=== PATIENT | female | born 1975 | race Two or more races ===

== ENCOUNTER 2020-08-12 19:04 | Emergency (ER) | payer SELFPAY ==
[2020-08-12 19:29] VITALS: BP 135/76
[2020-08-12] MEDS ORDERED: LIDOCAINE 2% VISCOUS SOLN 15 ML UDCUP PO ONE (19:41)
[2020-08-12] MEDS ORDERED: PENICILLIN V POTASSIUM 500 MG TABLET PO ONE (19:41)
--- NOTE | 2020-08-12 19:50 | ER Document Report ---
ED Oral Problem - General Chief Complaint: Toothache Stated Complaint: POSSIBLE TOOTH ABCESS Time Seen by Provider: 08/12/20 19:35 Mode of Arrival: Ambulatory Information source: Patient Notes: 45-year-old female presented to ED for complaint of dental pain x2 weeks to the tooth #18. States she knows it was 2 weeks ago because she was eating sardines and at night when she brushed her teeth it started hurting. She does have a feeling in this tooth and it is decayed with mild swelling and redness around the tooth. Patient is alert oriented respirations regular nonlabored speaking in full sentences. Constitutional: Negative for fever. HENT: Negative for sore throat. To painful tooth number 18 x 2 weeks with mild redness and swelling and pain with chewing or cold water Eyes: Negative for visual changes. Cardiovascular: Negative for chest pain. Respiratory: Negative for shortness of breath. Gastrointestinal: Negative for abdominal pain, vomiting or diarrhea. Genitourinary: Negative for dysuria. Musculoskeletal: Negative for back pain. Skin: Negative for rash. Neurological: Negative for headaches, weakness or numbness. 10 point ROS negative except as marked above and in HPI. PHYSICAL EXAMINATION: GENERAL: Well-appearing, well-nourished and in no acute distress. HEAD: Atraumatic, normocephalic. EYES: Pupils equal round extraocular movements intact, conjunctiva are normal. ENT: Nares patent, tooth #18 decayed with inflammation redness and tenderness around the tooth minimal swelling to the face NECK: Normal range of motion LUNGS: No respiratory distress Musculoskeletal: Normal range of motion NEUROLOGICAL: Normal speech, normal gait. PSYCH: Normal mood, normal affect. SKIN: Warm, Dry, normal turgor, no rashes or lesions noted. - HPI Patient complains to provider of: Jaw pain, Swelling of face, Swelling of jaw, Toothache Onset: Other - 2 weeks Onset: Gradual Quality of pain: Sharp, Throbbing Severity: Moderate Pain Level: 4 Swollen jaw/face: Mild Associated symptoms: Toothache Worsened by: Cold Relieved by: Nothing Similar symptoms previously: Yes Recently seen / treated by doctor/dentist: No Past Medical History - General Information source: Patient - Social History Smoking Status: Never Smoker Frequency of alcohol use: None Drug Abuse: None Lives with: Family Family History: Reviewed & Not Pertinent Patient has suicidal ideation: No Patient has homicidal ideation: No - Past Medical History Cardiac Medical History: Reports: Hx Hypertension - Due to toxemia when she was 15 Pulmonary Medical History: Reports: None EENT Medical History: Reports: None Neurological Medical History: Reports: None Endocrine Medical History: Reports: None Renal/ Medical History: Reports: None Malignancy Medical History: Reports: None GI Medical History: Reports: None Musculoskeletal Medical History: Reports Hx Musculoskeletal Trauma Skin Medical History: Reports None Psychiatric Medical History: Reports: None Traumatic Medical History: Reports: None Infectious Medical History: Reports: None Past Surgical History: Reports: Hx Appendectomy - Immunizations Immunizations up to date: Yes Hx Diphtheria, Pertussis, Tetanus Vaccination: Yes Physical Exam - Vital signs Vitals: Temp Pulse Resp BP Pulse Ox 98.7 F 79 14 135/76 H 100 08/12/20 19:27 08/12/20 19:27 08/12/20 19:27 08/12/20 19:27 08/12/20 19:27 Course - Re-evaluation Re-evalutation: 08/12/20 19:52 Presentation is most consistent with likely an infected tooth. Airway is patent. Vitals within normal limits. Patient is able swallow without any difficulty. There is no significant facial swelling. No evidence of Irvin angina, apical abscess, or airway obstruction. Patient will be started on antibiotics. I've instructed to follow-up with dentistry as earliest ability for definitive management. At this time will discharge with return precautions and follow-up recommendations. Verbal discharge instructions given a the bedside and opportunity for questions given. Medication warnings reviewed. Patient is in agreement with this plan and has verbalized understanding of return precautions and the need for primary care follow-up in the next 24-72 hours. - Vital Signs Vital signs: Temp Pulse Resp BP Pulse Ox 98.7 F 79 14 135/76 H 100 08/12/20 19:27 08/12/20 19:27 08/12/20 19:27 08/12/20 19:08/12/20 19:27 Discharge - Discharge Clinical Impression: Pain due to dental caries Condition: Stable Disposition: HOME, SELF-CARE Additional Instructions: TOOTHACHE: Your pain is due to dental decay. The tooth must be repaired in order for you to feel better. You will, therefore, be referred to a dentist. We do not have dentists on the staff at [facility]. Severe swelling or drainage around a tooth usually means a dental abscess. This also requires evaluation and treatment by the dentist, but antibiotics may be prescribed while awaiting dental treatment. You should be rechecked immediately if you develop major swelling of the face, increasing pain, a lump in the jaw or gums, headache, difficulty swallowing, or fever. PENICILLIN V K: You have been given a prescription for Penicillin VK. Your physician has determined that this is the best antibiotic for your condition. Pen VK can be taken with meals, however more of the antibiotic gets into the bloodstream if it's taken on an empty stomach. Penicillin usually has no side effects. However, allergy to penicillins is common. If you have had an allergic reaction to any drug of the penicillin family, you should never take any other penicillin. Notify your doctor at once if you develop hives, itching, swelling, faintness, or shortness of breath. Acetaminophen Acetaminophen may be taken for pain relief or fever control. It's much safer than aspirin, offering a wider range of "safe" dosages. It is safe during . Some brand names are Tylenol, Panadol, Datril, Anacin 3, Tempra, and Liquiprin. Acetaminophen can be repeated every four hours. The following are maximum recommended dosages: WEIGHT Dose Drops Elixir Chewable(80mg) (LBS.) drprs=droppers tsp=teaspoon 6 40 mg .4 ml (1/2) 6-11 80 mg .8 ml (full) 1/2 tsp 1 tab 12-16 120 mg 1 1/2 drprs 3/4 tsp 1 1/2 tabs 17-23 160 mg 2 drprs 1 tsp 2 tabs 24-30 240 mg 3 drprs 1 1/2 tsp 3 tabs 30-35 320 mg 2 tsp 4 tabs 36-41 360 mg 2 1/4 tsp 4 1/2 tabs 42-47 400 mg 2 1/2 tsp 5 tabs 48-53 480 mg 3 tsp 6 tabs 54-59 520 mg 3 1/4 tsp 6 1/2 tabs 60-64 560 mg 3 1/2 tsp 7 tabs 65-70 600 mg 3 3/4 tsp 7 1/2 tabs 71-76 640 mg 4 tsp 8 tabs 77-82 720 mg 4 1/2 tsp 9 tabs 83-88 800 mg 5 tsp 10 tabs >89 pounds or adults 650 mg to 900 mg Acetaminophen can be repeated every four hours. Maximum daily dose not to exceed 4000 mg. These maximum recommended dosages are slightly higher than the dosages written on the product container, but these dosages are very safe and well below the toxic dosage for acetaminophen. Ibuprofen Ibuprofen is an excellent, safe drug for pain control. In addition, it has potent antiinflammatory effects which are beneficial, especially in the treatment of injuries, arthritis, or tendonitis. It's best to take ibuprofen with food. Persons with ulcer disease or allergy to aspirin should notify their physician of this before taking ibuprofen. Take the medication exactly as prescribed. Don't take additional doses unless instructed to do so by your doctor. If you develop wheezing, shortness of breath, hives, faintness, stomach pain, vomiting, or dark black stools, return for re-evaluation at once. You have been given a syringe of viscous lidocaine. Please place a small amount on the into your finger and rub it to the gums and tooth that is hurting. You can place this on your tooth every 4 hours. Please do not use more often than every 4 hours as it can erode the skin on your gums and make it more sore. Is a very good pain reliever used every 4 hours. It can also numb your tongue and cheek please be sure you do not bite your tongue or cheek. FOLLOW-UP CARE: You have been referred for follow-up care to the dentists listed below. Call the dentists office for an appointment as you were instructed or within the next two days. If you experience worsening or a significant change in your symptoms, notify the physician immediately or return to the Emergency Department at any time for re-evaluation. [facility] [address] [place] [address] [facility] [address] [facility]. [facility] [address] [facility] [address] [facility]. [facility] [address] [facility]. [email or web address] [place] [address] [place] [address] Tuesday- 8:00am to 5:00 pm Will see patients from other [facility]. Charges based on income and family size and accepts Medicare, Medicaid, and Insurances Will pull molars [facility] [place] [address] Hours of Operation 8:00 am - 4:30 pm weekdays The following dental offices accept Medicaid: [facility] Dr. [address] Dr. Rowe Dr. Caceres Dr. Vo Johann Downey, Andrés, and Jessica oral surgery Dr. Chadwick ([place]) Dr. Hercules ([place]) [facility] Drs. Santiago ([place]) Dr. Franco ([place]) [facility] Dr. Hannon ([place]) Drs. Pablo and ([place]) Medicaid Care Line Prescriptions: Penicillin V Potassium [Penicillin Vk 500 mg Tablet] 500 mg PO BID #20 tablet Forms: Elevated Blood Pressure
== END 2020-08-12 19:50 | disposition home or self-care (01) ==
LOC: ER 19:04
DX: K02.9 Dental caries, unspecified (principal)
CPT/HCPCS: 99283; J3490